=== PATIENT | male | born 1940 | race African-American/Black ===

== ENCOUNTER 2019-02-17 09:06 | Emergency (ER) | payer MEDICARE, MEDICAID ==
[~2019-02-17] VITALS: Ht 175.3 cm; Wt 67.0 kg
[2019-02-17 09:53] LABS: BASOPHILS % 0.7 % (0.0-2.0); EOSINOPHILS % 1.7 % (0.0-5.0); HEMATOCRIT. 38.7 % (42.0-52.0); LYMPHOCYTES % 21.1 % (20.0-50.0); MEAN CORPUSCULAR HEMOGLOBIN 31.9 pg (28.0-32.0); MEAN CORPUSCULAR VOLUME 95.2 fL (80.0-94.0); MEAN PLATELET VOLUME 7.9 fl (7.4-10.4); MONOCYTES % 8.2 % (2.0-8.0); NEUTROPHILS % 68.3 % (40.0-76.0); PLATELET 217 x1000/uL (130-400); RED BLOOD CELL COUNT 4.07 mill/uL (4.7-6.1); RED CELL DISTRIBUTION WIDTH 13.8 % (11.6-14.6)
[2019-02-17 09:56] LABS: CHLORIDE 102 mEq/L (98-107)
[2019-02-17 15:06] VITALS: BP 117/81
== END 2019-02-17 15:10 | disposition home or self-care (01) ==
LOC: ER 09:16
DX: G40.909 Epilepsy, unspecified, not intractable, without status epilepticus (principal); J44.9 Chronic obstructive pulmonary disease, unspecified; F03.90 Unspecified dementia, unspecified severity, without behavioral disturbance, psychotic disturbance, mood disturbance, and anxiety; K21.9 Gastro-esophageal reflux disease without esophagitis; I10 Essential (primary) hypertension
CPT/HCPCS: 36415; 99284; A4315

== ENCOUNTER 2019-02-19 15:50 | Inpatient (IN) | payer MEDICARE, MEDICAID ==
[~2019-02-19] VITALS: Ht 177.8 cm; Wt 60.8 kg
[~2019-02-19 15:50] MED LIST: ETOMIDATE 2MG/ML 10ML VIAL IV ONE; SODIUM CHLORIDE 0.9% 10ML VIAL ONE; VECURONIUM BROMIDE 10 MG/VIAL IV ONE
[2019-02-19] MEDS ORDERED: ACETAMINOPHEN 650MG SUPP PR STA (16:11)
[2019-02-19] MEDS ORDERED: SODIUM CHLORIDE 0.9% 1000ML BAG (SEPSIS BOLUS) IV ONE (16:15)
[2019-02-19] MEDS ORDERED: LEVOFLOXACIN 500MG PREMIX 100 ML IV ONE (16:30)
[2019-02-19] MEDS ORDERED: MIDAZOLAM HCL 50 MG in DEXTROSE 5% WATER 40 ML IV ONE ×5 (16:30→20:30)
[2019-02-19] MEDS ORDERED: LEVETIRACETAM 1000MG/100ML 100 ML IV ONE (16:30)
[2019-02-19] MEDS ORDERED: SUCCINYLCHOLINE CHLORIDE 200MG/10ML IV ONE (16:30)
[2019-02-19] MEDS ORDERED: PIPERACILLIN/TAZ 3.375G PREMIX 50 ML IV ONE (16:30)
[2019-02-19] MEDS ORDERED: NOREPINEPHRINE 4 MG in DEXT 5% WATER 246 ML IV ONE (16:30)
[2019-02-19] MEDS ORDERED: ETOMIDATE 2MG/ML 10ML VIAL IV ONE (16:30)
[2019-02-19 17:09] LABS: BASOPHILS % 0.3 % (0.0-2.0); EOSINOPHILS % 2.1 % (0.0-5.0); HEMATOCRIT. 36.1 % (42.0-52.0); HEMOGLOBIN. 12.1 g/dL (14.0-18.0); LYMPHOCYTES % 31.3 % (20.0-50.0); MEAN CORPUSCULAR HEMOGLOBIN 31.9 pg (28.0-32.0); MEAN CORPUSCULAR VOLUME 95.5 fL (80.0-94.0); MEAN PLATELET VOLUME 8.2 fl (7.4-10.4); MONOCYTES % 9.5 % (2.0-8.0); NEUTROPHILS % 56.8 % (40.0-76.0); PLATELET 214 x1000/uL (130-400); RED BLOOD CELL COUNT 3.78 mill/uL (4.7-6.1); RED CELL DISTRIBUTION WIDTH 14.4 % (11.6-14.6)
[2019-02-19 17:16] LABS: BG BASE EXCESS -0.6 mmol/L (-2.0-2.0); BG CARBOXYHEMOGLOBIN 1.8 % (0.5-1.5); BG DEOXYHEMOGLOBIN 0.4 % (0.0-5.0); BG FRACTION INSPIRED OXYGEN 100; BG METHEMOGLOBIN 0.2 % (0.0-1.5); BG OXYGEN SATURATION 99.6 % (92.0-98.5); BG OXYHEMOGLOBIN 97.6 % (94.0-97.0); BG PCO2 34.4 mmHg (35.0-45.0); BG PH 7.443 (7.350-7.450); BG PO2 559.6 mmHg (75.0-100.0); BG SAMPLE SITE RIGHT BRACHIAL; BG TIDAL VOLUME(mL) 450 mL; BG TOTAL HEMOGLOBIN 12.9 g/dL (12.0-18.0); BG VENT MODE VENT - A/C; BG VENT RATE 14 set
[2019-02-19 17:16] LABS: INR 1.2; PROTHROMBIN TIME 11.8 sec (9.1-11.1)
[2019-02-19 17:17] LABS: CHLORIDE 104 mEq/L (98-107)
[2019-02-19 17:36] LABS: CLARITY URINE CLEAR (CLEAR); COLOR URINE YELLOW (YELLOW); KETONES URINE TRACE (NEGATIVE); LEUKOCYTE ESTERASE URINE TRACE (NEGATIVE); NITRITE URINE NEGATIVE (NEGATIVE); OCCULT BLOOD URINE 2+ (NEGATIVE); PROTEIN URINE 1+ (NEGATIVE); SPECIFIC GRAVITY URINE 1.017 (1.005-1.030); UROBILINOGEN URINE 0.2 E.U./dL (0.2-1.0)
[2019-02-19 17:36] LABS: CARBAMAZEPINE < 0.5 ug/mL (4-12); PHENOBARBITAL < 2.1 ug/mL (15.0-40.0)
[2019-02-19] MEDS ORDERED: LABETALOL 5MG/ML SYR 20 MG/4 ML SYRINGE IV ONE (18:00)
[2019-02-19] MEDS ORDERED: PROPOFOL 10MG/ML 100ML 100 ML IV ONE (18:13)
[2019-02-19] MEDS ORDERED: PROPOFOL 10MG/ML 100ML 100 ML IV SCH (18:15)
[2019-02-19] MEDS ORDERED: ASPIRIN 300MG SUPP PR ONE (19:45)
[2019-02-20] VITALS (48 sets, daily range): BP systolic 78–170; BP diastolic 47–98
[2019-02-20] MEDS ORDERED: MIDAZOLAM HCL 50 MG in DEXTROSE 5% WATER 40 ML IV PRN (02:15)
[2019-02-20 03:31] LABS: BG BASE EXCESS -2.2 mmol/L (-2.0-2.0); BG CARBOXYHEMOGLOBIN 0.6 % (0.5-1.5); BG DEOXYHEMOGLOBIN 1.4 % (0.0-5.0); BG FRACTION INSPIRED OXYGEN 40; BG HCO3 ACT 22.5 mmol/L (22.0-26.0); BG METHEMOGLOBIN 0.3 % (0.0-1.5); BG OXYGEN SATURATION 98.6 % (92.0-98.5); BG OXYHEMOGLOBIN 97.7 % (94.0-97.0); BG PCO2 38.5 mmHg (35.0-45.0); BG PH 7.385 (7.350-7.450); BG PO2 134.2 mmHg (75.0-100.0); BG SAMPLE SITE RIGHT RADIAL; BG TIDAL VOLUME(mL) 450 mL; BG TOTAL HEMOGLOBIN 13.7 g/dL (12.0-18.0); BG VENT MODE VENT - A/C; BG VENT RATE 14 set
[2019-02-20] MEDS: MIDAZOLAM HCL 50 MG in DEXTROSE 5% WATER 40 ML IV PRN ×2 (04:21→17:10)
[2019-02-20] MEDS ORDERED: PIPERACILLIN/TAZ 3.375G PREMIX 50 ML IV SCH (05:00)
[2019-02-20 08:48] LABS: BASOPHILS % 0.6 % (0.0-2.0); HEMATOCRIT. 40.3 % (42.0-52.0); HEMOGLOBIN. 13.4 g/dL (14.0-18.0); LYMPHOCYTES % 23.2 % (20.0-50.0); MEAN CORPUSCULAR HEMOGLOBIN 32.1 pg (28.0-32.0); MEAN CORPUSCULAR VOLUME 96.7 fL (80.0-94.0); MEAN PLATELET VOLUME 8.7 fl (7.4-10.4); MONOCYTES % 13.5 % (2.0-8.0); NEUTROPHILS % 57.7 % (40.0-76.0); PLATELET 207 x1000/uL (130-400); RED BLOOD CELL COUNT 4.17 mill/uL (4.7-6.1); RED CELL DISTRIBUTION WIDTH 14.3 % (11.6-14.6)
[2019-02-20 08:49] LABS: CHLORIDE 107 mEq/L (98-107)
[2019-02-20] MEDS: LEVETIRACETAM 1,500 MG in SODIUM CHLORIDE 0.9% 100 ML IV SCH ×2 (08:53→20:44)
[2019-02-20 08:54] LABS: PHOSPHORUS 2.6 mg/dL (2.5-4.9)
[2019-02-20] MEDS: PANTOPRAZOLE SODIUM 40 MG/VIAL IV SCH (10:08)
[2019-02-20 10:12] LABS: BG BASE EXCESS -2.4 mmol/L (-2.0-2.0); BG CARBOXYHEMOGLOBIN 0.6 % (0.5-1.5); BG DEOXYHEMOGLOBIN 1.3 % (0.0-5.0); BG FRACTION INSPIRED OXYGEN 35; BG HCO3 ACT 21.8 mmol/L (22.0-26.0); BG METHEMOGLOBIN 0.3 % (0.0-1.5); BG OXYGEN SATURATION 98.7 % (92.0-98.5); BG OXYHEMOGLOBIN 97.8 % (94.0-97.0); BG PCO2 35.7 mmHg (35.0-45.0); BG PH 7.403 (7.350-7.450); BG PO2 134.3 mmHg (75.0-100.0); BG SAMPLE SITE LEFT RADIAL; BG TIDAL VOLUME(mL) 550 mL; BG VENT MODE VENT - A/C; BG VENT RATE 14 set
[2019-02-20] MEDS ORDERED: POTASSIUM PHOS,M-BASIC-D-BASIC 20 MMOL in DEXT 5% WATER 243.3333 ML IV ONE (11:00)
[2019-02-20] MEDS: CLOPIDOGREL 75MG TABLET PO SCH (11:21)
[2019-02-20] MEDS: PIPERACILLIN/TAZ 3.375G PREMIX 50 ML IV SCH ×3 (11:21→23:52)
[2019-02-20] MEDS ORDERED: SODIUM CHLORIDE 0.9% 500 ML IV ONE ×2 (12:11→12:15)
[2019-02-20] MEDS ORDERED: PHENYTOIN SODIUM 1,000 MG in SODIUM CHLORIDE 0.9% 100 ML IV NR (12:30)
[2019-02-20] MEDS ORDERED: MAGNESIUM SULFATE 3 GM in DEXT 5% WATER 96 ML IV NR (13:00)
[2019-02-20] MEDS ORDERED: SODIUM CHLORIDE 0.9% 500 ML IV SCH (13:00)
[2019-02-20] MEDS ORDERED: LEVOFLOXACIN 500MG PREMIX 100 ML IV SCH (18:00)
[2019-02-20] MEDS: DEXT 5%/0.9% NACL 1,000 ML IV SCH (18:32)
[2019-02-20] MEDS ORDERED: METO-396 MT (19:03)
[2019-02-20] MEDS ORDERED: KEPPSOL MT (19:03)
[2019-02-20] MEDS ORDERED: LOSA25TA12 MT (19:03)
[2019-02-20] MEDS ORDERED: AMLO10TA80 MT (19:03)
[2019-02-20] MEDS ORDERED: DOCU-138 MT (19:03)
[2019-02-20] MEDS ORDERED: SODIUM CHLORIDE 0.9% 500 ML IV NR (19:20)
[2019-02-20 20:07] LABS: BG BASE EXCESS -3.3 mmol/L (-2.0-2.0); BG CARBOXYHEMOGLOBIN 0.3 % (0.5-1.5); BG DEOXYHEMOGLOBIN 2.1 % (0.0-5.0); BG FRACTION INSPIRED OXYGEN 35; BG HCO3 ACT 21.1 mmol/L (22.0-26.0); BG METHEMOGLOBIN 0.3 % (0.0-1.5); BG OXYGEN SATURATION 97.9 % (92.0-98.5); BG OXYHEMOGLOBIN 97.3 % (94.0-97.0); BG PCO2 36.2 mmHg (35.0-45.0); BG PH 7.384 (7.350-7.450); BG SAMPLE SITE RIGHT RADIAL; BG TIDAL VOLUME(mL) 550 mL; BG VENT MODE VENT - A/C; BG VENT RATE 14 set
[2019-02-20] MEDS: ENOXAPARIN 40MG/0.4ML SYR SUBCUT SCH (20:43)
[2019-02-20] MEDS ORDERED: NOREPINEPHRINE 16 MG in DEXT 5% WATER 484 ML IV PRN (20:45)
[2019-02-21] VITALS (50 sets, daily range): BP systolic 121–182; BP diastolic 61–121
[2019-02-21] MEDS: MIDAZOLAM HCL 50 MG in DEXTROSE 5% WATER 40 ML IV PRN ×3 (04:20→20:40)
[2019-02-21 05:50] LABS: BASOPHILS % 0.3 % (0.0-2.0); EOSINOPHILS % 1.2 % (0.0-5.0); HEMATOCRIT. 35.9 % (42.0-52.0); HEMOGLOBIN. 12.1 g/dL (14.0-18.0); LYMPHOCYTES % 11.1 % (20.0-50.0); MEAN CORPUSCULAR HEMOGLOBIN 31.7 pg (28.0-32.0); MEAN CORPUSCULAR VOLUME 93.9 fL (80.0-94.0); MEAN PLATELET VOLUME 8.6 fl (7.4-10.4); MONOCYTES % 6.7 % (2.0-8.0); NEUTROPHILS % 80.7 % (40.0-76.0); PLATELET 218 x1000/uL (130-400); RED BLOOD CELL COUNT 3.82 mill/uL (4.7-6.1)
[2019-02-21 05:54] LABS: CHLORIDE 104 mEq/L (98-107)
[2019-02-21 05:59] LABS: PHOSPHORUS 2.2 mg/dL (2.5-4.9)
[2019-02-21 06:00] LABS: LDL CHOLESTEROL 27 mg/dL (5-100)
[2019-02-21] MEDS: PIPERACILLIN/TAZ 3.375G PREMIX 50 ML IV SCH ×4 (06:08→23:33)
[2019-02-21] MEDS: DEXT 5%/0.9% NACL 1,000 ML IV SCH ×2 (07:53→19:32)
[2019-02-21] MEDS: CLOPIDOGREL 75MG TABLET PO SCH (08:43)
[2019-02-21] MEDS: PANTOPRAZOLE SODIUM 40 MG/VIAL IV SCH (08:43)
[2019-02-21] MEDS: LEVETIRACETAM 1,500 MG in SODIUM CHLORIDE 0.9% 100 ML IV SCH ×2 (08:43→20:13)
[2019-02-21] MEDS ORDERED: WATER IV NR (11:00)
[2019-02-21] MEDS ORDERED: POTASSIUM PHOS M BASIC D BASIC IV NR (11:00)
[2019-02-21] MEDS ORDERED: DEXT 5% IV NR (11:00)
[2019-02-21 11:29] LABS: BG BASE EXCESS 0.3 mmol/L (-2.0-2.0); BG CARBOXYHEMOGLOBIN 0.3 % (0.5-1.5); BG DEOXYHEMOGLOBIN 1.6 % (0.0-5.0); BG FRACTION INSPIRED OXYGEN 35; BG HCO3 ACT 24.4 mmol/L (22.0-26.0); BG METHEMOGLOBIN 0.2 % (0.0-1.5); BG OXYGEN SATURATION 98.4 % (92.0-98.5); BG OXYHEMOGLOBIN 97.9 % (94.0-97.0); BG PCO2 38.1 mmHg (35.0-45.0); BG PH 7.425 (7.350-7.450); BG PO2 114.9 mmHg (75.0-100.0); BG SAMPLE SITE LEFT BRACHIAL; BG TIDAL VOLUME(mL) 550 mL; BG TOTAL HEMOGLOBIN 16.1 g/dL (12.0-18.0); BG VENT MODE VENT - A/C; BG VENT RATE 4 set
[2019-02-21] MEDS: LEVOFLOXACIN 250MG PREMIX 50 ML IV SCH (12:59)
[2019-02-21] MEDS: CLONIDINE 0.1MG TABLET PO PRN (13:14)
[2019-02-21 13:57] LABS: BG BASE EXCESS 1.7 mmol/L (-2.0-2.0); BG CARBOXYHEMOGLOBIN 0.4 % (0.5-1.5); BG DEOXYHEMOGLOBIN 2.3 % (0.0-5.0); BG FRACTION INSPIRED OXYGEN 35; BG HCO3 ACT 26.2 mmol/L (22.0-26.0); BG METHEMOGLOBIN 0.3 % (0.0-1.5); BG OXYGEN SATURATION 97.7 % (92.0-98.5); BG PCO2 41.1 mmHg (35.0-45.0); BG PH 7.423 (7.350-7.450); BG PO2 101.9 mmHg (75.0-100.0); BG PRESSURE SUPPORT 10; BG SAMPLE SITE RIGHT BRACHIAL; BG TIDAL VOLUME(mL) 550 mL; BG TOTAL HEMOGLOBIN 12.9 g/dL (12.0-18.0); BG VENT MODE VENT - SIMV; BG VENT RATE 6 set
[2019-02-21] MEDS: ENOXAPARIN 40MG/0.4ML SYR SUBCUT SCH (19:31)
[2019-02-21] MEDS: PHENYTOIN SODIUM EXTENDED 100MG CAPSULE PO SCH (20:13)
[2019-02-22] VITALS (36 sets, daily range): BP systolic 119–198; BP diastolic 27–171
[2019-02-22 04:50] LABS: BASOPHILS % 0.6 % (0.0-2.0); EOSINOPHILS % 6.4 % (0.0-5.0); LYMPHOCYTES % 15.5 % (20.0-50.0); MEAN CORPUSCULAR HEMOGLOBIN 31.7 pg (28.0-32.0); MEAN CORPUSCULAR VOLUME 94.8 fL (80.0-94.0); MEAN PLATELET VOLUME 7.9 fl (7.4-10.4); MONOCYTES % 8.5 % (2.0-8.0); PLATELET 201 x1000/uL (130-400); RED BLOOD CELL COUNT 4.11 mill/uL (4.7-6.1); RED CELL DISTRIBUTION WIDTH 13.8 % (11.6-14.6)
[2019-02-22 04:56] LABS: CHLORIDE 104 mEq/L (98-107)
[2019-02-22 05:05] LABS: PHOSPHORUS 2.1 mg/dL (2.5-4.9)
[2019-02-22] MEDS: PIPERACILLIN/TAZ 3.375G PREMIX 50 ML IV SCH ×3 (05:45→18:31)
[2019-02-22] MEDS: MIDAZOLAM HCL 50 MG in DEXTROSE 5% WATER 40 ML IV PRN ×2 (06:11→18:32)
[2019-02-22 07:38] LABS: BG DEOXYHEMOGLOBIN 2.1 % (0.0-5.0); BG FRACTION INSPIRED OXYGEN 35; BG HCO3 ACT 27.7 mmol/L (22.0-26.0); BG OXYGEN SATURATION 97.9 % (92.0-98.5); BG OXYHEMOGLOBIN 97.9 % (94.0-97.0); BG PCO2 42.7 mmHg (35.0-45.0); BG PO2 102.7 mmHg (75.0-100.0); BG PRESSURE SUPPORT 10; BG SAMPLE SITE RIGHT RADIAL; BG TIDAL VOLUME(mL) 550 mL; BG TOTAL HEMOGLOBIN 15.4 g/dL (12.0-18.0); BG VENT MODE VENT - SIMV; BG VENT RATE 6 set
[2019-02-22] MEDS: CLOPIDOGREL 75MG TABLET PO SCH (09:58)
[2019-02-22] MEDS: LEVETIRACETAM 1,500 MG in SODIUM CHLORIDE 0.9% 100 ML IV SCH ×2 (09:58→20:37)
[2019-02-22] MEDS: PANTOPRAZOLE SODIUM 40 MG/VIAL IV SCH (09:58)
[2019-02-22] MEDS: DEXT 5%/0.9% NACL 1,000 ML IV SCH ×2 (10:00→20:36)
[2019-02-22 10:29] LABS: BG BASE EXCESS 2.5 mmol/L (-2.0-2.0); BG CARBOXYHEMOGLOBIN 0.3 % (0.5-1.5); BG DEOXYHEMOGLOBIN 3.9 % (0.0-5.0); BG HCO3 ACT 26.8 mmol/L (22.0-26.0); BG METHEMOGLOBIN 0.1 % (0.0-1.5); BG OXYGEN SATURATION 96.1 % (92.0-98.5); BG OXYHEMOGLOBIN 95.7 % (94.0-97.0); BG PCO2 40.3 mmHg (35.0-45.0); BG PH 7.441 (7.350-7.450); BG PO2 80.6 mmHg (75.0-100.0); BG SAMPLE SITE RIGHT RADIAL; BG TIDAL VOLUME(mL) 550 mL; BG TOTAL HEMOGLOBIN 12.6 g/dL (12.0-18.0); BG VENT MODE VENT - SIMV; BG VENT RATE 4 set
[2019-02-22] MEDS ORDERED: MAGNESIUM 4 G PREMIX 100 ML IV NR (10:30)
[2019-02-22] MEDS ORDERED: POTASSIUM PHOS,M-BASIC-D-BASIC 20 MMOL in DEXT 5% WATER 243.3333 ML IV NR (11:00)
[2019-02-22] MEDS ORDERED: LIDOCAINE HCL 1% 20ML VIAL (Pyxis) INJ ONE (11:06)
[2019-02-22 13:54] LABS: BG BASE EXCESS 4.2 mmol/L (-2.0-2.0); BG CARBOXYHEMOGLOBIN 0.1 % (0.5-1.5); BG CPAP (cmH2O) 0 cm(H2O); BG DEOXYHEMOGLOBIN 5.1 % (0.0-5.0); BG HCO3 ACT 28.6 mmol/L (22.0-26.0); BG METHEMOGLOBIN 0.2 % (0.0-1.5); BG OXYGEN SATURATION 94.9 % (92.0-98.5); BG OXYHEMOGLOBIN 94.6 % (94.0-97.0); BG PCO2 41.9 mmHg (35.0-45.0); BG PH 7.452 (7.350-7.450); BG SAMPLE SITE RIGHT RADIAL; BG TOTAL HEMOGLOBIN 13.2 g/dL (12.0-18.0); BG VENT MODE VENT - CPAP
[2019-02-22] MEDS: LEVOFLOXACIN 250MG PREMIX 50 ML IV SCH (15:07)
[2019-02-22] MEDS: ENOXAPARIN 40MG/0.4ML SYR SUBCUT SCH (20:36)
[2019-02-22] MEDS: PHENYTOIN SODIUM EXTENDED 100MG CAPSULE PO SCH (20:36)
[2019-02-23] VITALS (47 sets, daily range): BP systolic 122–186; BP diastolic 71–103
[2019-02-23] MEDS: PIPERACILLIN/TAZ 3.375G PREMIX 50 ML IV SCH ×4 (01:04→17:35)
[2019-02-23] MEDS: MIDAZOLAM HCL 50 MG in DEXTROSE 5% WATER 40 ML IV PRN ×4 (02:51→21:16)
[2019-02-23 05:21] LABS: BASOPHILS % 0.5 % (0.0-2.0); HEMATOCRIT. 32.8 % (42.0-52.0); HEMOGLOBIN. 11.1 g/dL (14.0-18.0); LYMPHOCYTES % 25.3 % (20.0-50.0); MEAN CORPUSCULAR HEMOGLOBIN 31.9 pg (28.0-32.0); MEAN CORPUSCULAR VOLUME 94.2 fL (80.0-94.0); MEAN PLATELET VOLUME 8.5 fl (7.4-10.4); MONOCYTES % 9.1 % (2.0-8.0); NEUTROPHILS % 60.1 % (40.0-76.0); PLATELET 198 x1000/uL (130-400); RED BLOOD CELL COUNT 3.49 mill/uL (4.7-6.1)
[2019-02-23 05:25] LABS: CHLORIDE 104 mEq/L (98-107)
[2019-02-23 05:37] LABS: PHOSPHORUS 1.9 mg/dL (2.5-4.9)
[2019-02-23] MEDS: LORAZEPAM 2MG/ML CPJ IV PRN ×2 (09:07→15:47)
[2019-02-23] MEDS: CLOPIDOGREL 75MG TABLET PO SCH (09:23)
[2019-02-23] MEDS: PANTOPRAZOLE SODIUM 40 MG/VIAL IV SCH (09:23)
[2019-02-23] MEDS: LEVETIRACETAM 1,500 MG in SODIUM CHLORIDE 0.9% 100 ML IV SCH ×2 (09:23→20:46)
[2019-02-23] MEDS: CLONIDINE 0.1MG TABLET PO PRN ×2 (11:08→17:50)
[2019-02-23] MEDS ORDERED: DEXT 5% IV ONE (12:30)
[2019-02-23] MEDS ORDERED: POTASSIUM PHOS M BASIC D BASIC IV ONE (12:30)
[2019-02-23] MEDS ORDERED: WATER IV ONE (12:30)
[2019-02-23] MEDS: DEXT 5%/0.9% NACL 1,000 ML IV SCH (12:55)
[2019-02-23] MEDS: LEVOFLOXACIN 250MG PREMIX 50 ML IV SCH (13:57)
[2019-02-23] MEDS ORDERED: POTASSIUM PHOS,M-BASIC-D-BASIC 40 MMOL in DEXT 5% WATER 500 ML IV NR ×2 (14:00→22:00)
[2019-02-23] MEDS: METHYLPREDNISOLONE SOD SUCC 40 MG/ML VIAL IV SCH ×2 (14:40→22:49)
[2019-02-23] MEDS: PHENYTOIN SODIUM EXTENDED 100MG CAPSULE PO SCH (20:46)
[2019-02-23] MEDS: ENOXAPARIN 40MG/0.4ML SYR SUBCUT SCH (20:47)
[2019-02-24] VITALS (51 sets, daily range): BP systolic 134–197; BP diastolic 71–132
[2019-02-24] MEDS: PIPERACILLIN/TAZ 3.375G PREMIX 50 ML IV SCH ×5 (00:35→23:24)
[2019-02-24] MEDS: MIDAZOLAM HCL 50 MG in DEXTROSE 5% WATER 40 ML IV PRN ×2 (04:08→08:55)
[2019-02-24 05:48] LABS: BASOPHILS % 0.1 % (0.0-2.0); EOSINOPHILS % 0.2 % (0.0-5.0); HEMOGLOBIN. 12.1 g/dL (14.0-18.0); LYMPHOCYTES % 17.3 % (20.0-50.0); MEAN CORPUSCULAR HEMOGLOBIN 31.3 pg (28.0-32.0); MEAN CORPUSCULAR VOLUME 93.4 fL (80.0-94.0); MEAN PLATELET VOLUME 8.3 fl (7.4-10.4); MONOCYTES % 4.3 % (2.0-8.0); NEUTROPHILS % 78.1 % (40.0-76.0); PLATELET 225 x1000/uL (130-400); RED BLOOD CELL COUNT 3.85 mill/uL (4.7-6.1)
[2019-02-24 06:01] LABS: CHLORIDE 102 mEq/L (98-107)
[2019-02-24 06:14] LABS: PHOSPHORUS 4.3 mg/dL (2.5-4.9)
[2019-02-24] MEDS: METHYLPREDNISOLONE SOD SUCC 40 MG/ML VIAL IV SCH ×3 (06:25→21:09)
[2019-02-24] MEDS: DEXT 5%/0.9% NACL 1,000 ML IV SCH ×3 (06:25→15:35)
[2019-02-24 09:00] LABS: BG CARBOXYHEMOGLOBIN 0.1 % (0.5-1.5); BG FRACTION INSPIRED OXYGEN 35; BG HCO3 ACT 24.1 mmol/L (22.0-26.0); BG METHEMOGLOBIN 0.2 % (0.0-1.5); BG OXYHEMOGLOBIN 97.7 % (94.0-97.0); BG PCO2 29.8 mmHg (35.0-45.0); BG PH 7.526 (7.350-7.450); BG PO2 108.8 mmHg (75.0-100.0); BG SAMPLE SITE RIGHT RADIAL; BG TIDAL VOLUME(mL) 550 mL; BG TOTAL HEMOGLOBIN 11.3 g/dL (12.0-18.0); BG VENT MODE VENT - A/C; BG VENT RATE 14 set
[2019-02-24] MEDS: LEVETIRACETAM 1,500 MG in SODIUM CHLORIDE 0.9% 100 ML IV SCH ×2 (09:04→21:08)
[2019-02-24] MEDS: CLOPIDOGREL 75MG TABLET PO SCH (09:04)
[2019-02-24] MEDS: PANTOPRAZOLE SODIUM 40 MG/VIAL IV SCH (09:04)
[2019-02-24] MEDS: LORAZEPAM 2MG/ML CPJ IV PRN ×2 (09:04→23:21)
[2019-02-24] MEDS: CLONIDINE 0.1MG TABLET PO PRN ×2 (09:04→21:09)
[2019-02-24] MEDS: MIDAZOLAM HCL 100 MG in DEXT 5% WATER 80 ML IV PRN ×2 (13:41→23:11)
[2019-02-24] MEDS: LEVOFLOXACIN 250MG PREMIX 50 ML IV SCH (13:43)
[2019-02-24] MEDS: ENOXAPARIN 40MG/0.4ML SYR SUBCUT SCH (21:09)
[2019-02-24] MEDS: PHENYTOIN SODIUM EXTENDED 100MG CAPSULE PO SCH (21:09)
[2019-02-25] VITALS (33 sets, daily range): BP systolic 130–185; BP diastolic 64–100
[2019-02-25] MEDS: DEXT 5%/0.9% NACL 1,000 ML IV SCH ×2 (01:53→17:00)
[2019-02-25] MEDS: METHYLPREDNISOLONE SOD SUCC 40 MG/ML VIAL IV SCH ×3 (06:12→21:35)
[2019-02-25] MEDS: PIPERACILLIN/TAZ 3.375G PREMIX 50 ML IV SCH ×3 (06:12→17:01)
[2019-02-25 07:41] LABS: HEMATOCRIT 37.6 % (42.0-52.0); HEMOGLOBIN 12.5 g/dL (14.0-18.0); MEAN CORPUSCULAR HEMOGLOBIN 31.6 pg (28.0-32.0); MEAN CORPUSCULAR VOLUME 95.2 fL (80.0-94.0); PLATELET 256 x1000/uL (130-400); RED BLOOD CELL COUNT 3.95 mill/uL (4.7-6.1)
[2019-02-25 09:28] LABS: CHLORIDE 108 mEq/L (98-107)
[2019-02-25] MEDS: CLOPIDOGREL 75MG TABLET PO SCH (09:42)
[2019-02-25] MEDS: PANTOPRAZOLE SODIUM 40 MG/VIAL IV SCH (09:42)
[2019-02-25] MEDS: LEVETIRACETAM 1,500 MG in SODIUM CHLORIDE 0.9% 100 ML IV SCH ×2 (09:42→21:36)
[2019-02-25] MEDS: LEVOFLOXACIN 250MG PREMIX 50 ML IV SCH (11:23)
[2019-02-25] MEDS: MIDAZOLAM HCL 100 MG in DEXT 5% WATER 80 ML IV PRN (13:54)
[2019-02-25 13:57] LABS: BG CARBOXYHEMOGLOBIN 0.3 % (0.5-1.5); BG FRACTION INSPIRED OXYGEN 30; BG HCO3 ACT 24.1 mmol/L (22.0-26.0); BG METHEMOGLOBIN 0.4 % (0.0-1.5); BG OXYHEMOGLOBIN 96.3 % (94.0-97.0); BG PCO2 30.1 mmHg (35.0-45.0); BG PH 7.522 (7.350-7.450); BG PO2 89.3 mmHg (75.0-100.0); BG PRESSURE SUPPORT 10; BG SAMPLE SITE RIGHT RADIAL; BG TIDAL VOLUME(mL) 550 mL; BG TOTAL HEMOGLOBIN 12.2 g/dL (12.0-18.0); BG VENT MODE VENT - SIMV; BG VENT RATE 6 set
[2019-02-25] MEDS: CLONIDINE 0.1MG TABLET PO PRN (14:14)
[2019-02-25] MEDS ORDERED: LORAZEPAM 1MG TABLET ONE (15:53)
[2019-02-25] MEDS: MORPHINE SULFATE 4 MG/ML CPJ (NOT FOR IM USE) IV PRN (17:00)
[2019-02-25] MEDS: PHENYTOIN SODIUM EXTENDED 100MG CAPSULE PO SCH (21:35)
[2019-02-25] MEDS: ENOXAPARIN 40MG/0.4ML SYR SUBCUT SCH (21:40)
[2019-02-26] VITALS (63 sets, daily range): BP systolic 148–214; BP diastolic 72–105
[2019-02-26] MEDS: PIPERACILLIN/TAZ 3.375G PREMIX 50 ML IV SCH ×4 (00:14→18:21)
[2019-02-26] MEDS: MIDAZOLAM HCL 100 MG in DEXT 5% WATER 80 ML IV PRN ×2 (02:18→14:22)
[2019-02-26] MEDS: CLONIDINE 0.1MG TABLET PO PRN ×3 (03:38→16:30)
[2019-02-26] MEDS: METHYLPREDNISOLONE SOD SUCC 40 MG/ML VIAL IV SCH ×3 (05:59→22:08)
[2019-02-26] MEDS: DEXT 5%/0.9% NACL 1,000 ML IV SCH ×2 (06:01→21:21)
[2019-02-26] MEDS: CLOPIDOGREL 75MG TABLET PO SCH (09:05)
[2019-02-26] MEDS: LEVETIRACETAM 1,500 MG in SODIUM CHLORIDE 0.9% 100 ML IV SCH ×2 (09:05→21:21)
[2019-02-26] MEDS: PANTOPRAZOLE SODIUM 40 MG/VIAL IV SCH (09:05)
[2019-02-26] MEDS ORDERED: IPRATROPIUM/ALBUTEROL 0.5-3(2.5)MG/3ML NEB HHN SCH (11:30)
[2019-02-26 11:46] LABS: HEMATOCRIT. 32.7 % (42.0-52.0); MEAN CORPUSCULAR HEMOGLOBIN 31.6 pg (28.0-32.0); PLATELET 250 x1000/uL (130-400); RED BLOOD CELL COUNT 3.48 mill/uL (4.7-6.1); RED CELL DISTRIBUTION WIDTH 14.1 % (11.6-14.6)
[2019-02-26] MEDS: IPRATROPIUM/ALBUTEROL 0.5-3(2.5)MG/3ML NEB HHN SCH ×3 (12:00→20:41)
[2019-02-26 12:01] LABS: CHLORIDE 106 mEq/L (98-107)
[2019-02-26 12:20] LABS: PHOSPHORUS 2.2 mg/dL (2.5-4.9)
[2019-02-26 12:32] LABS: PLATELET ESTIMATE NORMAL
[2019-02-26] MEDS: MORPHINE SULFATE 4 MG/ML CPJ (NOT FOR IM USE) IV PRN (14:29)
[2019-02-26 14:51] LABS: BG BASE EXCESS 3.1 mmol/L (-2.0-2.0); BG CARBOXYHEMOGLOBIN 0.3 % (0.5-1.5); BG DEOXYHEMOGLOBIN 2.1 % (0.0-5.0); BG FRACTION INSPIRED OXYGEN 35; BG HCO3 ACT 26.9 mmol/L (22.0-26.0); BG METHEMOGLOBIN 0.2 % (0.0-1.5); BG OXYGEN SATURATION 97.9 % (92.0-98.5); BG OXYHEMOGLOBIN 97.4 % (94.0-97.0); BG PCO2 38.2 mmHg (35.0-45.0); BG PH 7.465 (7.350-7.450); BG PO2 112.8 mmHg (75.0-100.0); BG PRESSURE SUPPORT 10; BG SAMPLE SITE LEFT RADIAL; BG TIDAL VOLUME(mL) 550 mL; BG TOTAL HEMOGLOBIN 11.8 g/dL (12.0-18.0); BG VENT MODE VENT - SIMV; BG VENT RATE 6 set
[2019-02-26] MEDS ORDERED: LOSARTAN POTASSIUM 25 MG TABLET PO SCH (15:30)
[2019-02-26] MEDS ORDERED: LOSARTAN POTASSIUM 100 MG TABLET PO STA (16:20)
[2019-02-26 18:07] LABS: BG BASE EXCESS 2.8 mmol/L (-2.0-2.0); BG CARBOXYHEMOGLOBIN 0.2 % (0.5-1.5); BG CPAP (cmH2O) 0 cm(H2O); BG DEOXYHEMOGLOBIN 1.7 % (0.0-5.0); BG HCO3 ACT 27.4 mmol/L (22.0-26.0); BG METHEMOGLOBIN 0.3 % (0.0-1.5); BG OXYGEN SATURATION 98.3 % (92.0-98.5); BG OXYHEMOGLOBIN 97.8 % (94.0-97.0); BG PCO2 42.4 mmHg (35.0-45.0); BG PH 7.429 (7.350-7.450); BG PO2 127.9 mmHg (75.0-100.0); BG SAMPLE SITE LEFT BRACHIAL; BG TOTAL HEMOGLOBIN 13.9 g/dL (12.0-18.0); BG VENT MODE VENT - CPAP
[2019-02-26] MEDS: ENOXAPARIN 40MG/0.4ML SYR SUBCUT SCH (21:22)
[2019-02-26] MEDS: PHENYTOIN SODIUM EXTENDED 100MG CAPSULE PO SCH (21:23)
[2019-02-26] MEDS: HYDRALAZINE 20MG/ML VIAL IV PRN (22:09)
[2019-02-27] VITALS (39 sets, daily range): BP systolic 3–183; BP diastolic 59–120
[2019-02-27] MEDS: IPRATROPIUM/ALBUTEROL 0.5-3(2.5)MG/3ML NEB HHN SCH ×6 (00:36→20:44)
[2019-02-27] MEDS: PIPERACILLIN/TAZ 3.375G PREMIX 50 ML IV SCH ×3 (00:48→12:23)
[2019-02-27] MEDS: CLONIDINE 0.1MG TABLET PO PRN ×2 (01:25→09:46)
[2019-02-27] MEDS: METHYLPREDNISOLONE SOD SUCC 40 MG/ML VIAL IV SCH ×3 (06:18→22:03)
[2019-02-27] MEDS: PANTOPRAZOLE SODIUM 40 MG/VIAL IV SCH (07:53)
[2019-02-27] MEDS: LOSARTAN POTASSIUM 100 MG TABLET PO SCH (07:54)
[2019-02-27] MEDS: CLOPIDOGREL 75MG TABLET PO SCH (09:00)
[2019-02-27] MEDS: LEVETIRACETAM 1,500 MG in SODIUM CHLORIDE 0.9% 100 ML IV SCH ×2 (09:45→22:25)
[2019-02-27] MEDS: DEXT 5%/0.9% NACL 1,000 ML IV SCH ×2 (12:24→22:32)
[2019-02-27] MEDS ORDERED: LORAZEPAM 2MG/ML CPJ IV NR ×2 (13:15→23:15)
[2019-02-27] MEDS ORDERED: LORAZEPAM 2MG/ML CPJ IV SCH (13:41)
[2019-02-27] MEDS: HALOPERIDOL LACTATE 5MG/ML VIAL IM PRN (15:25)
[2019-02-27] MEDS ORDERED: HYDRALAZINE 20MG/ML VIAL IV PRN (15:45)
[2019-02-27] MEDS: MORPHINE SULFATE 4 MG/ML CPJ (NOT FOR IM USE) IV PRN (18:28)
[2019-02-27] MEDS: PHENYTOIN SODIUM EXTENDED 100MG CAPSULE PO SCH (22:03)
[2019-02-27] MEDS: ENOXAPARIN 40MG/0.4ML SYR SUBCUT SCH (22:03)
[2019-02-27] MEDS ORDERED: BISACODYL 10MG SUPP PR PRN (23:15)
[2019-02-27] MEDS ORDERED: BISACODYL 10MG SUPP PR NR (23:15)
[2019-02-28] VITALS (26 sets, daily range): BP systolic 132–188; BP diastolic 67–101
[2019-02-28] MEDS: IPRATROPIUM/ALBUTEROL 0.5-3(2.5)MG/3ML NEB HHN SCH ×6 (00:20→20:36)
[2019-02-28 06:36] LABS: CHLORIDE 104 mEq/L (98-107)
[2019-02-28] MEDS: METHYLPREDNISOLONE SOD SUCC 40 MG/ML VIAL IV SCH ×3 (08:02→23:01)
[2019-02-28] MEDS: CLONIDINE 0.1MG TABLET PO PRN ×2 (08:03→20:23)
[2019-02-28] MEDS: LEVETIRACETAM 1,500 MG in SODIUM CHLORIDE 0.9% 100 ML IV SCH ×2 (08:52→21:44)
[2019-02-28] MEDS: CLOPIDOGREL 75MG TABLET PO SCH (09:01)
[2019-02-28] MEDS: PANTOPRAZOLE SODIUM 40 MG/VIAL IV SCH (09:01)
[2019-02-28] MEDS: LOSARTAN POTASSIUM 100 MG TABLET PO SCH (09:01)
[2019-02-28] MEDS: AMLODIPINE 10MG TABLET PO SCH (11:30)
[2019-02-28] MEDS: HYDRALAZINE HCL 25MG TABLET PO SCH ×3 (11:31→21:41)
[2019-02-28] MEDS ORDERED: HYDRALAZINE HCL 25MG TABLET PO SCH (14:00)
[2019-02-28] MEDS: DEXT 5%/0.9% NACL 1,000 ML IV SCH (15:07)
[2019-02-28] MEDS: SULFAMETHOXAZOLE/TRIMETHOPRIM 800/160MG TABLET GT SCH (20:22)
[2019-02-28] MEDS: PHENYTOIN SODIUM EXTENDED 100MG CAPSULE PO SCH (20:22)
[2019-02-28] MEDS: ENOXAPARIN 40MG/0.4ML SYR SUBCUT SCH (20:22)
[2019-02-28] MEDS: HALOPERIDOL LACTATE 5MG/ML VIAL IM PRN (21:41)
[2019-02-28] MEDS: MORPHINE SULFATE 4 MG/ML CPJ (NOT FOR IM USE) IV PRN (23:01)
[2019-02-28] MEDS: HYDRALAZINE 20MG/ML VIAL IV PRN (23:36)
[2019-03-01] VITALS (13 sets, daily range): BP systolic 116–177; BP diastolic 60–83
[2019-03-01] MEDS: IPRATROPIUM/ALBUTEROL 0.5-3(2.5)MG/3ML NEB HHN SCH ×3 (00:09→07:45)
[2019-03-01 06:51] LABS: BASOPHILS % 0.2 % (0.0-2.0); HEMATOCRIT. 33.6 % (42.0-52.0); HEMOGLOBIN. 11.4 g/dL (14.0-18.0); MEAN CORPUSCULAR HEMOGLOBIN 31.9 pg (28.0-32.0); MEAN CORPUSCULAR VOLUME 93.9 fL (80.0-94.0); MEAN PLATELET VOLUME 7.4 fl (7.4-10.4); MONOCYTES % 10.5 % (2.0-8.0); NEUTROPHILS % 68.3 % (40.0-76.0); PLATELET 330 x1000/uL (130-400); RED BLOOD CELL COUNT 3.58 mill/uL (4.7-6.1); RED CELL DISTRIBUTION WIDTH 13.9 % (11.6-14.6)
[2019-03-01 06:55] LABS: PROTHROMBIN TIME 10.7 sec (9.6-11.0)
[2019-03-01] MEDS: DEXT 5%/0.9% NACL 1,000 ML IV SCH ×2 (07:07→15:10)
[2019-03-01] MEDS: METHYLPREDNISOLONE SOD SUCC 40 MG/ML VIAL IV SCH ×3 (07:10→21:42)
[2019-03-01] MEDS: HYDRALAZINE HCL 25MG TABLET PO SCH ×3 (07:10→21:20)
[2019-03-01 07:26] LABS: CHLORIDE 103 mEq/L (98-107)
[2019-03-01 07:42] LABS: PHOSPHORUS 2.6 mg/dL (2.5-4.9)
[2019-03-01] MEDS ORDERED: AMLODIPINE 10MG TABLET PO SCH (09:00)
[2019-03-01] MEDS: SULFAMETHOXAZOLE/TRIMETHOPRIM 800/160MG TABLET GT SCH ×2 (09:36→20:01)
[2019-03-01] MEDS: CLOPIDOGREL 75MG TABLET PO SCH (09:36)
[2019-03-01] MEDS: PANTOPRAZOLE SODIUM 40 MG/VIAL IV SCH (09:36)
[2019-03-01] MEDS: LOSARTAN POTASSIUM 100 MG TABLET PO SCH (09:36)
[2019-03-01] MEDS: LEVETIRACETAM 1,500 MG in SODIUM CHLORIDE 0.9% 100 ML IV SCH ×2 (09:36→21:19)
[2019-03-01] MEDS: AMLODIPINE 10MG TABLET PO SCH (09:36)
[2019-03-01] MEDS: CLONIDINE 0.1MG TABLET PO PRN (14:17)
[2019-03-01] MEDS: ENOXAPARIN 40MG/0.4ML SYR SUBCUT SCH (19:47)
[2019-03-01] MEDS ORDERED: POTASSIUM CHLORIDE 20MEQ/PACKET PO NR (20:00)
[2019-03-01] MEDS: PHENYTOIN SODIUM EXTENDED 100MG CAPSULE PO SCH (20:02)
[2019-03-01] MEDS: HALOPERIDOL LACTATE 5MG/ML VIAL IM PRN (20:10)
[2019-03-02] VITALS (10 sets, daily range): BP systolic 133–175; BP diastolic 70–92
[2019-03-02] MEDS: IPRATROPIUM/ALBUTEROL 0.5-3(2.5)MG/3ML NEB HHN SCH ×6 (00:44→21:22)
[2019-03-02] MEDS: DEXT 5%/0.9% NACL 1,000 ML IV SCH ×2 (04:55→18:15)
[2019-03-02] MEDS: METHYLPREDNISOLONE SOD SUCC 40 MG/ML VIAL IV SCH ×3 (05:42→20:45)
[2019-03-02] MEDS: HYDRALAZINE HCL 25MG TABLET PO SCH ×2 (05:45→14:00)
[2019-03-02] MEDS: HALOPERIDOL LACTATE 5MG/ML VIAL IM PRN (06:13)
[2019-03-02 07:02] LABS: BASOPHILS % 0.2 % (0.0-2.0); HEMATOCRIT. 33.2 % (42.0-52.0); HEMOGLOBIN. 11.2 g/dL (14.0-18.0); LYMPHOCYTES % 28.6 % (20.0-50.0); MEAN CORPUSCULAR HEMOGLOBIN 31.7 pg (28.0-32.0); MEAN CORPUSCULAR VOLUME 93.8 fL (80.0-94.0); MEAN PLATELET VOLUME 6.9 fl (7.4-10.4); MONOCYTES % 9.7 % (2.0-8.0); NEUTROPHILS % 61.5 % (40.0-76.0); PLATELET 325 x1000/uL (130-400); RED BLOOD CELL COUNT 3.54 mill/uL (4.7-6.1)
[2019-03-02 07:28] LABS: CHLORIDE 105 mEq/L (98-107)
[2019-03-02 07:34] LABS: PHOSPHORUS 2.4 mg/dL (2.5-4.9)
[2019-03-02] MEDS: SULFAMETHOXAZOLE/TRIMETHOPRIM 800/160MG TABLET GT SCH ×2 (08:38→20:46)
[2019-03-02] MEDS: AMLODIPINE 10MG TABLET PO SCH (08:39)
[2019-03-02] MEDS: PANTOPRAZOLE SODIUM 40 MG/VIAL IV SCH (08:39)
[2019-03-02] MEDS: LEVETIRACETAM 1,500 MG in SODIUM CHLORIDE 0.9% 100 ML IV SCH ×2 (08:39→20:45)
[2019-03-02] MEDS: CLOPIDOGREL 75MG TABLET PO SCH (08:40)
[2019-03-02] MEDS: LOSARTAN POTASSIUM 100 MG TABLET PO SCH (10:01)
[2019-03-02] MEDS: MORPHINE SULFATE 4 MG/ML CPJ (NOT FOR IM USE) IV PRN (11:05)
[2019-03-02] MEDS ORDERED: MAGNESIUM 2 G PREMIX 50 ML IV NR (13:00)
[2019-03-02] MEDS ORDERED: POTASSIUM PHOS,M-BASIC-D-BASIC 20 MMOL in DEXT 5% WATER 243.3333 ML IV NR (13:30)
[2019-03-02] MEDS: CLONIDINE 0.1MG TABLET PO PRN (14:02)
[2019-03-02] MEDS: ENOXAPARIN 40MG/0.4ML SYR SUBCUT SCH (20:45)
[2019-03-02] MEDS: PHENYTOIN SODIUM EXTENDED 100MG CAPSULE PO SCH (20:46)
[2019-03-03] VITALS (9 sets, daily range): BP systolic 133–174; BP diastolic 67–91
[2019-03-03] MEDS: HALOPERIDOL LACTATE 5MG/ML VIAL IM PRN (00:26)
[2019-03-03] MEDS: IPRATROPIUM/ALBUTEROL 0.5-3(2.5)MG/3ML NEB HHN SCH ×6 (01:48→21:09)
[2019-03-03] MEDS: DEXT 5%/0.9% NACL 1,000 ML IV SCH ×2 (05:21→19:37)
[2019-03-03] MEDS: METHYLPREDNISOLONE SOD SUCC 40 MG/ML VIAL IV SCH (05:21)
[2019-03-03] MEDS: PANTOPRAZOLE SODIUM 40 MG/VIAL IV SCH (09:29)
[2019-03-03] MEDS: LOSARTAN POTASSIUM 100 MG TABLET PO SCH (09:29)
[2019-03-03] MEDS: AMLODIPINE 10MG TABLET PO SCH (09:29)
[2019-03-03] MEDS: SULFAMETHOXAZOLE/TRIMETHOPRIM 800/160MG TABLET GT SCH ×2 (09:29→20:53)
[2019-03-03] MEDS: CLOPIDOGREL 75MG TABLET PO SCH (09:29)
[2019-03-03] MEDS: LEVETIRACETAM 1,500 MG in SODIUM CHLORIDE 0.9% 100 ML IV SCH (09:30)
[2019-03-03] MEDS: HYDRALAZINE HCL 25MG TABLET PO SCH ×2 (15:51→22:13)
[2019-03-03] MEDS: CLONIDINE 0.1MG TABLET PO PRN (15:52)
[2019-03-03] MEDS: ENOXAPARIN 40MG/0.4ML SYR SUBCUT SCH (19:37)
[2019-03-03] MEDS: LEVETIRACETAM 500MG TABLET PO SCH (20:53)
[2019-03-03] MEDS: PHENYTOIN SODIUM EXTENDED 100MG CAPSULE PO SCH (20:54)
[2019-03-04] VITALS (12 sets, daily range): BP systolic 123–172; BP diastolic 68–91
[2019-03-04] MEDS: IPRATROPIUM/ALBUTEROL 0.5-3(2.5)MG/3ML NEB HHN SCH ×5 (00:37→17:18)
[2019-03-04] MEDS: HYDRALAZINE HCL 25MG TABLET PO SCH ×2 (05:33→14:00)
[2019-03-04 07:01] LABS: BASOPHILS % 0.3 % (0.0-2.0); EOSINOPHILS % 1.5 % (0.0-5.0); HEMATOCRIT. 32.6 % (42.0-52.0); HEMOGLOBIN. 11.1 g/dL (14.0-18.0); LYMPHOCYTES % 36.3 % (20.0-50.0); MEAN CORPUSCULAR HEMOGLOBIN 32.1 pg (28.0-32.0); MEAN PLATELET VOLUME 6.7 fl (7.4-10.4); MONOCYTES % 12.2 % (2.0-8.0); NEUTROPHILS % 49.7 % (40.0-76.0); PLATELET 362 x1000/uL (130-400); RED BLOOD CELL COUNT 3.47 mill/uL (4.7-6.1); RED CELL DISTRIBUTION WIDTH 14.2 % (11.6-14.6)
[2019-03-04 07:24] LABS: CHLORIDE 106 mEq/L (98-107)
[2019-03-04 07:31] LABS: PHOSPHORUS 2.4 mg/dL (2.5-4.9)
[2019-03-04] MEDS ORDERED: PREDNISONE 20MG TABLET PO SCH (09:00)
[2019-03-04] MEDS: PANTOPRAZOLE SODIUM 40 MG/VIAL IV SCH (09:14)
[2019-03-04] MEDS: LEVETIRACETAM 500MG TABLET PO SCH ×2 (09:14→20:52)
[2019-03-04] MEDS: SULFAMETHOXAZOLE/TRIMETHOPRIM 800/160MG TABLET GT SCH ×2 (09:15→20:55)
[2019-03-04] MEDS: CLOPIDOGREL 75MG TABLET PO SCH (09:15)
[2019-03-04] MEDS: AMLODIPINE 10MG TABLET PO SCH (09:15)
[2019-03-04] MEDS: CLONIDINE 0.1MG TABLET PO PRN ×2 (09:15→14:55)
[2019-03-04] MEDS: LOSARTAN POTASSIUM 100 MG TABLET PO SCH (09:15)
[2019-03-04] MEDS: DEXT 5%/0.9% NACL 1,000 ML IV SCH (10:15)
[2019-03-04] MEDS ORDERED: MAGNESIUM 2 G PREMIX 100 ML IV SCH (12:00)
[2019-03-04] MEDS ORDERED: MAGNESIUM 1 G PREMIX 100 ML IV NR (14:00)
[2019-03-04] MEDS: ENOXAPARIN 40MG/0.4ML SYR SUBCUT SCH (20:00)
[2019-03-04] MEDS: PHENYTOIN SODIUM EXTENDED 100MG CAPSULE PO SCH (20:52)
== END 2019-03-04 21:18 | DRG 870 ==
LOC: ER 15:50 → EDBEDREQTM 18:53 → EDBEDREQ 18:53 → CVICU 18:53 → ENRESERV 02-20 01:35 → 5EST 03-01 01:00
PROVIDERS: ADMIT Internal Medicine; ATTEND Internal Medicine
PROC: 5A1955Z Respiratory Ventilation, Greater than 96 Consecutive Hours (ICD-10-PCS; principal; 2019-02-19)
PROC: 0BH17EZ Insertion of Endotracheal Airway into Trachea, Via Natural or Artificial Opening (ICD-10-PCS; 2019-02-19)
PROC: 06HY33Z Insertion of Infusion Device into Lower Vein, Percutaneous Approach (ICD-10-PCS; 2019-02-19)
PROC: 4A00X4Z Measurement of Central Nervous Electrical Activity, External Approach (ICD-10-PCS; 2019-02-21)
PROC: 05HM33Z Insertion of Infusion Device into Right Internal Jugular Vein, Percutaneous Approach (ICD-10-PCS; 2019-02-22)
PROC: B543ZZA Ultrasonography of Right Jugular Veins, Guidance (ICD-10-PCS; 2019-02-22)
DX: A41.9 Sepsis, unspecified organism (principal); R65.21 Severe sepsis with septic shock; I63.9 Cerebral infarction, unspecified; G92 Toxic encephalopathy; J96.00 Acute respiratory failure, unspecified whether with hypoxia or hypercapnia; N39.0 Urinary tract infection, site not specified; E46 Unspecified protein-calorie malnutrition; J44.1 Chronic obstructive pulmonary disease with (acute) exacerbation; Z68.1 Body mass index [BMI] 19.9 or less, adult; G40.901 Epilepsy, unspecified, not intractable, with status epilepticus; F03.90 Unspecified dementia, unspecified severity, without behavioral disturbance, psychotic disturbance, mood disturbance, and anxiety; I10 Essential (primary) hypertension; B96.20 Unspecified Escherichia coli [E. coli] as the cause of diseases classified elsewhere; D64.9 Anemia, unspecified; H54.62 Unqualified visual loss, left eye, normal vision right eye; K21.9 Gastro-esophageal reflux disease without esophagitis; R13.10 Dysphagia, unspecified; N35.919 Unspecified urethral stricture, male, unspecified site; R26.9 Unspecified abnormalities of gait and mobility; Z78.1 Physical restraint status; Z86.73 Personal history of transient ischemic attack (TIA), and cerebral infarction without residual deficits; Z87.891 Personal history of nicotine dependence
CPT/HCPCS: 36415; 36569; 36600; 70544; 70553; 71045; 74018; 76937; 78582; 80048; 80156; 80165; 80184; 80185; 82375; 82805; 83605; 83721; 83735; 83880; 84100; 84134; 84145; 84443; 84478; 84484; 85007; 85027; 86850; 86900; 87070; 87077; 87186; 87804; 92610; 93005; 93306; 93880; 93970; 94003; 94640; 96365; 96366; 96368; 96375; 97116; 97161; 97166; 99284; 99291; A6261; A9558; C1725; C9113; J0360; J1165; J1630; J1650; J1953; J1956; J2060; J2250; J2270; J2543; J2704; J2920; J3475; J3490; J7030; J7040; J7042; J7050; J7060; J7512; J7620; A4315

== ENCOUNTER 2019-04-16 10:41 | Emergency (ER) | payer MEDICARE, MEDICAID ==
[~2019-04-16] VITALS: Ht 188 cm; Wt 62.0 kg
[~2019-04-16 10:41] MED LIST changes: +AMLO10TA80 MT; -ETOMIDATE 2MG/ML 10ML VIAL IV ONE; +KEPPSOL MT; +LOSA25TA26 MT; -SODIUM CHLORIDE 0.9% 10ML VIAL ONE; -VECURONIUM BROMIDE 10 MG/VIAL IV ONE
[2019-04-16] MEDS ORDERED: BACITRACIN ZINC OINT UDPKT TOP ONE (11:00)
[2019-04-16] MEDS ORDERED: TETANUS, DIPHTHERIA, PERTUSSIS VAC/PF 0.5ML (>7YR OLD) IM ONE (11:00)
[2019-04-16] MEDS ORDERED: MORPHINE SULFATE 4 MG/ML CPJ (NOT FOR IM USE) IV STA ×2 (11:09→14:49)
[2019-04-16] MEDS ORDERED: ONDANSETRON HCL 4MG/2ML INJ IV STA (11:09)
[2019-04-16] MEDS ORDERED: SODIUM CHLORIDE 0.9% 500 ML IV ONE (11:09)
[2019-04-16] MEDS ORDERED: CEFAZOLIN 1000MG PREMIX 50 ML IV ONE (11:15)
[2019-04-16] MEDS ORDERED: LIDOCAINE HCL/PF 1% 10 MG/ML 5ML VIAL IJ ONE (14:15)
[2019-04-16] MEDS ORDERED: LIDOCAINE HCL/PF 1% 10 MG/ML 5ML VIAL ONE (14:17)
[2019-04-16] MEDS ORDERED: LIDOCAINE HCL 1% 20ML VIAL (Pyxis) INJ INFIL ONE (14:45)
[2019-04-16] MEDS ORDERED: LORAZEPAM 2MG/ML CPJ IV ONE (15:30)
[2019-04-16] MEDS ORDERED: OLANZAPINE 10 MG/VIAL IM ONE (17:30)
[2019-04-16] MEDS ORDERED: HYDRALAZINE 20MG/ML VIAL IV ONE (21:00)
[2019-04-16 21:23] VITALS: BP 137/76
[2019-06-23] MEDS ORDERED: DOCU100T PO (02:37)
[2019-06-23] MEDS ORDERED: PRED-276 PO (02:37)
[2019-06-23] MEDS ORDERED: ACET-2708 PO (02:37)
[2019-06-23] MEDS ORDERED: LORA2DIS5 IM (02:37)
[2019-06-23] MEDS ORDERED: FERR325T6 PO (02:37)
[2019-06-23] MEDS ORDERED: ACET-2178 PO (02:37)
[2019-06-23] MEDS ORDERED: ASCO-339 PO (02:37)
[2019-06-23] MEDS ORDERED: MULT-1223 PO (02:37)
[2019-06-23] MEDS ORDERED: LOSA100T32 PO (02:37)
[2019-06-23] MEDS ORDERED: KEPP500 PO (02:37)
[2019-06-23] MEDS ORDERED: PHEN100C4 PO (02:37)
[2019-06-23] MEDS ORDERED: CLON0.1T PO (02:37)
[2019-06-23] MEDS ORDERED: IBUP-2029 PO (02:37)
[2019-06-26] MEDS ORDERED: LEVO500T2 MT (14:55)
== END 2019-04-16 21:42 | disposition home or self-care (01) ==
LOC: ER 10:41
DX: S61.210A Laceration without foreign body of right index finger without damage to nail, initial encounter (principal); S61.214A Laceration without foreign body of right ring finger without damage to nail, initial encounter; J44.9 Chronic obstructive pulmonary disease, unspecified; K21.9 Gastro-esophageal reflux disease without esophagitis; F03.90 Unspecified dementia, unspecified severity, without behavioral disturbance, psychotic disturbance, mood disturbance, and anxiety; I10 Essential (primary) hypertension; W22.8XXA Striking against or struck by other objects, initial encounter; Y93.89 Activity, other specified; Y92.89 Other specified places as the place of occurrence of the external cause; Y99.8 Other external cause status
CPT/HCPCS: 73130; 90471; 90715; 96365; 96372; 96375; 96376; 99283; J0360; J0690; J2060; J2270; J2405; J3490; J7040